=== PATIENT | female | born 1950 | race Caucasian/White ===

== ENCOUNTER 2017-03-09 03:22 | Emergency (ER) | payer MEDICARE, BC ==
[2017-03-09] MEDS ORDERED: Sodium Chloride 0.9% 1,000 ML IV ONE (03:44)
[2017-03-09] MEDS ORDERED: Morphine 2 MG/ML Syringe IVPUSH ONE (03:44)
[2017-03-09] MEDS ORDERED: Ondansetron 4 MG/2 ML SDV IVPUSH ONE (03:44)
[2017-03-09] MEDS ORDERED: Pantoprazole 40 MG in Sodium Chloride 0.9% 10 ML IVPUSH ONE (03:45)
[2017-03-09] MEDS ORDERED: Sodium Chloride 0.9% 2.5 ML Syringe FLUSH PRN (03:45)
[2017-03-09] MEDS ORDERED: Sodium Chloride 0.9% 10 ML Syringe FLUSH PRN (03:45)
--- NOTE | 2017-03-09 03:46 | EDM.PDOC ---
ED HPI GENERAL MEDICAL PROBLEM - General Chief Complaint: Abdominal Pain Stated Complaint: STOMACH PAIN Time Seen by Provider: 03/09/17 03:35 - History of Present Illness INITIAL COMMENTS - FREE TEXT/NARRATIVE: HISTORY AND PHYSICAL: History of present illness: The patient is a 66-year-old female with a history of hypertension hypercholesterolemia and prediabetes who presents with the complaint of epigastric discomfort and 2 episodes of vomiting that started about 9:00pm. The patient has not had an endoscopy recently but states that more than 20 years ago she had a bleeding ulcer but she has been stable from that perspective since that time. Her last colonoscopy was performed September of 2016 and revealed diverticulosis. The patient states that she does have issues with fatty foods in the past has been evaluated for her gallbladder but that was also negative workup. She still finds that she has issues with fatty foods so she tries to avoid them. The patient states that she ate tuna with mayonnaise for dinner and then approximately 9 PM started having epigastric discomfort with nausea and then 2 episodes of vomiting occurred later in the evening. She took a dose of sucralfate which seemed to help a little bit. She did have increased burping and fullness but did not have radiation of the pain to the remainder of the abdomen and has had no recent diarrhea or black or bloody stools. With the 2 episodes of vomiting at home it was white consistent with milk that she tried to drink to settle her stomach down. There was no coffee grounds or blood in the vomitus. She has had no recent fever chills shortness of breath cough or flank pain and has had no urinary complaints. She does tell me that the pain is sharp and gnawing in character and does radiate to her back but does not go right or left. Patient also tells me that she does have episodes of heartburn on a semi-regular basis and treats it symptomatically at home . The patient follows at [facility] with Dr. Saavedra Review of systems: As per history of present illness and below otherwise all systems reviewed and negative. Past medical history: As per history of present illness and as reviewed below otherwise noncontributory. Surgical history: As per history of present illness and as reviewed below otherwise noncontributory. Social history: No reported history of drug or alcohol abuse. Family history: As per history of present illness and as reviewed below otherwise noncontributory. Physical exam: General: Well-developed well-nourished nontoxic female who is mildly overweight and moves easily in the ED without distress. Vital signs been noted by me HEENT: Atraumatic, normocephalic, negative for conjunctival pallor or scleral icterus, mucous membranes moist, throat clear, neck supple, nontender, trachea midline. Lungs: Clear to auscultation, breath sounds equal bilaterally, chest nontender. Heart: S1S2, regular, negative for clicks, rubs, or JVD. Abdomen: Soft, nondistended, mildly tender in the epigastrium and in the midline just above the umbilicus without rebound or guarding and there was no localization of the tenderness right or left and there is no lower abdominal tenderness. Negative for masses or hepatosplenomegaly. Negative for costovertebral tenderness. Bowel sounds are hypoactive Pelvis: Stable nontender. Genitourinary: Deferred. Rectal: Deferred. Extremities: Atraumatic, negative for cords or calf pain. Neurovascular unremarkable. No pedal edema Neuro: Awake, alert, oriented. Cranial nerves II through XII unremarkable. Cerebellum unremarkable. Motor and sensory unremarkable throughout. Exam nonfocal. Diagnostics: EKG chest x-ray CBC CMP amylase lipase UA in the abdomen and pelvis Therapeutics: IV fluids Zofran morphine Protonix Patient is currently pain-free and I discussed with her and at bedside all testing results. In light of the fact that she has no WBC count and normal LFTs and no fever and is currently pain-free I discussed this case with Dr. Carney our surgeon on-call at 0625. She agrees with outpatient care and I will write a prescription for gallbladder ultrasound as an outpatient and pain meds. I advised her on reasons to return to the ER and the need to call today for clinic followup appointment Impression: Cholelithiasis with biliary colic stable Definitive disposition and diagnosis as appropriate pending reevaluation and review of above. epigastric area Pain Score (Numeric/FACES): 10 - Related Data Allergies Allergy/AdvReac Type Severity Reaction Status Date / Time iodine Allergy Blisters Verified 03/09/17 05:19 Penicillins Allergy Hives Verified 03/09/17 03:29 Home Meds: Home Meds Bisoprolol/Hydrochlorothiazide [Ziac 2.5-6.25 MG] 1 tab PO DAILY 06/06/16 [ History] Gemfibrozil 600 mg PO BID 06/06/16 [History] Ascorbic Acid [Vitamin C] 830 mg PO DAILY 09/24/16 [History] Aspirin [[place]udson Aspirin] 1 tab PO DAILY 09/24/16 [History] Calcium Carbonate [Calcium] 1 tab PO DAILY 09/24/16 [History] Glucosamine [Glucosamine Sulfate] 1 tab PO BID 09/24/16 [History] Past Medical History HEENT History: Reports: Other (See Below) Other HEENT History: on glasses Cardiovascular History: Reports: High Cholesterol, Hypertension Respiratory History: Reports: None Gastrointestinal History: Reports: Other (See Below) Other Gastrointestinal History: Ulcers Genitourinary History: Reports: None [employer]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: Musculoskeletal History: Reports: None Neurological History: Reports: None Psychiatric History: Reports: None Endocrine/Metabolic History: Reports: Obesity/BMI 30+, Other (See Below) Other Endocrine/Metabolic History: pre-DM Hematologic History: Reports: None Immunologic History: Reports: None Oncologic (Cancer) History: Reports: None Dermatologic History: Reports: None - Infectious Disease History Infectious Disease History: Reports: None - Past Surgical History Head Surgeries/Procedures: Reports: None HEENT Surgical History: Reports: Naso-Sinus Surgery, Tonsillectomy Female Surgical History: Reports: Section, Dilitation & Evacuation Musculoskeletal Surgical History: Reports: Other (See Below) Other Musculoskeletal Surgeries/Procedures:: left ankle surgery Social & Family History - Family History Family Medical History: Noncontributory - Tobacco Use Smoking Status *Q: Never Smoker Month Tobacco Last Used: quit smoking in 1983 - Caffeine Use Caffeine Use: Reports: Coffee - Recreational Drug Use Recreational Drug Use: No Drug Use in Last 12 Months: No ED ROS GENERAL - Review of Systems Review Of Systems: ROS reveals no pertinent complaints other than HPI. ED EXAM, GENERAL - Physical Exam Exam: See Below (See dictation) Course - Vital Signs Last Recorded V/S: Last Vital Signs Temp 36.1 C 03/09/17 03:31 Pulse 67 03/09/17 03:31 Resp 16 03/09/17 03:31 BP 171/84 H 03/09/17 03:31 Pulse Ox 96 03/09/17 04:23 - Orders/Labs/Meds Orders: Active Orders 24 hr Category Date Time Status Cardiac Monitoring [RC] . DIRECTED Care 03/09/17 03:44 Active EKG Documentation Completion [RC] STAT Care 03/09/17 03:44 Active Oxygen Therapy, ED [RC] ASDIRECTED Care 03/09/17 03:44 Active Pulse Oximetry [RC] ASDIRECTED Care 03/09/17 03:44 Active Abdomen Pelvis wo Cont [CT] Stat Exams 03/09/17 03:44 Taken Chest 1V Frontal [CR] Stat Exams 03/09/17 03:46 Taken Sodium Chloride 0.9% [Saline Flush] Med 03/09/17 03:45 Active 10 ml FLUSH ASDIRECTED PRN Sodium Chloride 0.9% [Saline Flush] Med 03/09/17 03:45 Active 2.5 ml FLUSH ASDIRECTED PRN Saline Lock Insert [OM.PC] Stat Oth 03/09/17 03:44 Ordered Medication Orders Sodium Chloride (Saline Flush) 10 ml FLUSH ASDIRECTED PRN PRN Reason: Keep Vein Open Sodium Chloride (Saline Flush) 2.5 ml FLUSH ASDIRECTED PRN PRN Reason: Keep Vein Open Labs: Laboratory Tests 03/09/17 03/09/17 03/09/17 Range/Units 04:05 04:05 04:46 WBC 8.33 (4.0-11.0) K/uL RBC 4.96 (4.30-5.90) M/uL Hgb 14.6 (12.0-16.0) g/dL Hct 44.1 (36.0-46.0) % MCV 88.9 (80.0-98.0) fL MCH 29.4 (27.0-32.0) pg MCHC 33.1 (31.0-37.0) g/dL RDW Std Deviation 43.1 (28.0-62.0) fl RDW Coeff of Anish 13 (11.0-15.0) % Plt Count 241 (150-400) K/uL MPV 11.00 (7.40-12.00) fL Neut % (Auto) 66.3 (48.0-80.0) % Lymph % (Auto) 24.4 (16.0-40.0) % Wilson % (Auto) 7.0 (0.0-15.0) % Eos % (Auto) 1.9 (0.0-7.0) % Baso % (Auto) 0.4 (0.0-1.5) % Neut # (Auto) 5.5 (1.4-5.7) K/uL Lymph # (Auto) 2.0 (0.6-2.4) K/uL Wilson # (Auto) 0.6 (0.0-0.8) K/uL Eos # (Auto) 0.2 (0.0-0.7) K/uL Baso # (Auto) 0.0 (0.0-0.1) K/uL Sodium 141 (136-146) mmol/L Potassium 4.1 (3.5-5.1) mmol/L Chloride 110 (98-110) mmol/L Carbon Dioxide 20 L (21-31) mmol/L BUN 20 (6.0-23.0) mg/dL Creatinine 0.9 (0.6-1.5) mg/dL Est Cr Clr Drug Dosing 56.78 mL/min Estimated GFR (MDRD) > 60.0 ml/min Glucose 151 H (60-110) mg/dL Calcium 9.3 (8.8-10.8) mg/dL Total Bilirubin 0.2 (0.1-1.5) mg/dL AST 18 (5-40) IU/L ALT 15 (8-54) IU/L Alkaline Phosphatase 71 (40-150) Total Protein 7.8 (6.0-8.0) g/dL Albumin 4.2 (3.4-4.8) g/dL Globulin 3.6 H (2.0-3.5) g/dL Albumin/Globulin Ratio 1.2 L (1.3-2.8) Amylase 52 (10-90) U/L Lipase 15 (7-80) U/L Urine Color YELLOW Urine Appearance CLEAR Urine pH 5.0 (5.0-8.0) Ur Specific [place] 1.025 (1.001-1.035) Urine Protein NEGATIVE (NEGATIVE) mg/dL Urine Glucose (UA) NEGATIVE (NEGATIVE) mg/dL Urine Ketones NEGATIVE (NEGATIVE) mg/dL Urine Occult Blood NEGATIVE (NEGATIVE) Urine Nitrite NEGATIVE (NEGATIVE) Urine Bilirubin NEGATIVE (NEGATIVE) Urine Urobilinogen 0.2 (<2.0) EU/dL Ur Leukocyte Esterase NEGATIVE (NEGATIVE) Urine RBC 0-2 (0-2/HPF) Urine WBC 0-4 (0-5/HPF) Ur Epithelial Cells FEW (NONE-FEW) Urine Bacteria FEW (NEGATIVE) Meds: Medications Generic Name Dose Route Start Last Admin Trade Name Sneha PRN Reason Stop Dose Admin Sodium Chloride 10 ml 03/09/17 03:45 Saline Flush FLUSH ASDIRECTED PRN Keep Vein Open Sodium Chloride 2.5 ml 03/09/17 03:45 Saline Flush FLUSH ASDIRECTED PRN Keep Vein Open Discontinued Medications Generic Name Dose Route Start Last Admin Trade Name Sneha PRN Reason Stop Dose Admin Hydromorphone HCl 1 mg 03/09/17 04:57 03/09/17 05:17 Dilaudid IVPUSH 03/09/17 04:58 1 mg ONETIME ONE Administration Pantoprazole Sodium 40 mg/ 10 mls @ 300 mls/hr 03/09/17 03:45 03/09/17 04:08 Sodium Chloride IVPUSH 03/09/17 03:46 300 mls/hr NOW ONE Administration Sodium Chloride 1,000 mls @ 999 mls/hr 03/09/17 03:44 03/09/17 04:07 Normal Saline IV 03/09/17 04:44 999 mls/hr STAT ONE Administration Morphine Sulfate 4 mg 03/09/17 03:44 03/09/17 04:09 Morphine IVPUSH 03/09/17 03:45 4 mg ONETIME ONE Administration Ondansetron HCl 4 mg 03/09/17 03:44 03/09/17 04:08 Zofran IVPUSH 03/09/17 03:45 4 mg ONETIME ONE Administration Departure - Departure Time of Disposition: 06:31 Disposition: Home, Self-Care 01 Condition: good Clinical Impression: Cholelithiasis - Discharge Information Forms: ED Department Discharge - My Orders Last 24 Hours: My Active Orders 03/09/17 03:44 Cardiac Monitoring [RC] . DIRECTED EKG Documentation Completion [RC] STAT Oxygen Therapy, ED [RC] ASDIRECTED Pulse Oximetry [RC] ASDIRECTED Abdomen Pelvis wo Cont [CT] Stat Saline Lock Insert [OM.PC] Stat 03/09/17 03:45 Sodium Chloride 0.9% [Saline Flush] 10 ml FLUSH ASDIRECTED PRN Sodium Chloride 0.9% [Saline Flush] 2.5 ml FLUSH ASDIRECTED PRN 03/09/17 03:46 Chest 1V Frontal [CR] Stat - Assessment/Plan Last 24 Hours: My Active Orders 03/09/17 03:44 Cardiac Monitoring [RC] . DIRECTED EKG Documentation Completion [RC] STAT Oxygen Therapy, ED [RC] ASDIRECTED Pulse Oximetry [RC] ASDIRECTED Abdomen Pelvis wo Cont [CT] Stat Saline Lock Insert [OM.PC] Stat 03/09/17 03:45 Sodium Chloride 0.9% [Saline Flush] 10 ml FLUSH ASDIRECTED PRN Sodium Chloride 0.9% [Saline Flush] 2.5 ml FLUSH ASDIRECTED PRN 03/09/17 03:46 Chest 1V Frontal [CR] Stat
[2017-03-09 04:34] LABS: CHLORIDE,CL 110 mmol/L (98-110); SODIUM,NA 141 mmol/L (136-146)
[2017-03-09] MEDS ORDERED: HYDROmorphone 2 MG/ML Syringe IVPUSH ONE (04:57)
[2017-03-09 07:03] VITALS: BP 118/57
--- NOTE | 2017-03-09 18:14 | CR ---
EXAM DATE: 03/09/17 PATIENT'S AGE: 66 Patient: JOELLE VALDERRAMA Facility: [place], [place] Site . Site : 1950 Study: XRay Chest [id number]/15/2017 3:59:32 AM Ordering Physician: Autumn Doyle Final Report: Indication: Upper abdominal pain Technique: Chest 1 view Comparison: None Findings/Impression: Cardiovascular and mediastinum: Heart size and vasculature are normal in caliber and appearance. Mediastinum is within normal limits. Lungs and pleural space: No consolidation or pleural effusions. A dense left upper lung nodule compatible with a granuloma. Bones and soft tissues: Thoracic osteophytosis consistent with DISH. Dictated by Angelito Christensen MD @ 03/09/2017 4:32:00 AM Dictated by: Angelito Christensen MD @ 03/09/2017 04:32:08 (Electronic Signature) Report Signed by Proxy. [email or web address]
--- NOTE | 2017-03-09 18:15 | CT ---
EXAM DATE: 03/09/17 PATIENT'S AGE: 66 Patient: JOELLE VALDERRAMA Facility: [place], [place] Site . Site : 1950 Study: CT Abdomen/Pelvis [id number]/15/2017 5:22:58 AM Ordering Physician: Autumn Doyle Final Report: INDICATION: epigastric pain, bilat back pain. HISTORY: Epigastric abdominal pain. COMPARISON: None. TECHNIQUE: CT of the abdomen and pelvis without intravenous contrast. Coronal/sagittal reconstruction images. FINDINGS: Lung bases: There is no pleural or pericardial effusion. The heart size is normal. The lung windows demonstrate no acute airspace disease. Minimal atelectasis at the right lung base. No basilar pneumothorax. Abdomen/pelvis: No solid hepatic mass. Gallstones. Questionable fat stranding adjacent to the gallbladder on image 57, series 201. Normal caliber biliary tree. Spleen size is normal. There is an exophytic left renal cyst. This measures 3.5 cm in transverse dimension. 5 mm stone in the left renal cortex on image 49. No drainable perinephric fluid collection. There is no obstructive urolith. Subtle increased density of both renal pelves, best seen on series 201, image 68, with questionable significance. No adnexal mass. Colonic diverticulosis. No findings for diverticulitis. No small bowel obstruction. No secondary signs for appendicitis. No abdominal aortic aneurysm. No abdominal or pelvic lymphadenopathy by size criteria. No inflammatory changes about the appendix. The bone windows demonstrate degenerative changes at the femoroacetabular joints. Osteophytic spurring is seen throughout the endplates of the thoracolumbar spine. No lytic or blastic bone lesions are seen. IMPRESSION: 1. Gallstones. Questionable adjacent inflammatory changes. Consider focused right upper quadrant ultrasound. 2. Normal caliber biliary tree. 3. No inflammatory changes about the pancreas. The anterior pararenal space is clear by CT. 4. Cortical loss about the left kidney. This could represent sequela from prior pyelonephritis, ischemia, or trauma. No obstructive urolith or hydroureteronephrosis. Dictated by Rodrigo Smith MD @ 03/09/2017 6:12:55 AM Dictated by: Rodrigo Smith MD @ 03/09/2017 06:13:05 (Electronic Signature) Report Signed by Proxy. JELENAD
== END 2017-03-09 07:10 | disposition home or self-care (01) ==
LOC: MW.ED 03:22
DX: K80.70 Calculus of gallbladder and bile duct without cholecystitis without obstruction (principal); E78.00 Pure hypercholesterolemia, unspecified; I10 Essential (primary) hypertension; E66.9 Obesity, unspecified; Z68.34 Body mass index [BMI] 34.0-34.9, adult; Z88.0 Allergy status to penicillin; Z88.8 Allergy status to other drugs, medicaments and biological substances; Z79.82 Long term (current) use of aspirin; Z79.899 Other long term (current) drug therapy; Z98.890 Other specified postprocedural states
CPT/HCPCS: 71010; 74176; 80053; 81001; 82150; 83690; 85025; 93005; 96361; 96374; 96375; 99285; C9113; J1170; J2270; J2405; J7040

== ENCOUNTER 2017-04-27 07:07 | Day surgery (SDC) | payer MEDICARE, BC ==
[~2017-04-27 07:07] MED LIST: Lactated Ringers 1,000 ML IV SCH; Sodium Chloride 0.9% 10 ML Syringe FLUSH PRN; Sodium Chloride 0.9% 2.5 ML Syringe FLUSH PRN; ceFAZolin 2 GM in Premix Bag 1 BAG IV ONE
[2017-04-27] MEDS ORDERED: Lidocaine 2% 5 ML SDV ONE (07:09)
[2017-04-27] MEDS ORDERED: Rocuronium 10 MG/ML 10 ML Syringe ONE (07:09)
[2017-04-27] MEDS ORDERED: Ondansetron 4 MG/2 ML SDV ONE (07:09)
[2017-04-27] MEDS ORDERED: Midazolam 1 MG/ML 2 ML SDV ONE (07:10)
[2017-04-27] MEDS ORDERED: fentaNYL 250 MCG/5 ML SDV ONE (07:10)
[2017-04-27] MEDS ORDERED: Propofol 200 MG/20 ML SDV ONE (07:10)
[2017-04-27] MEDS ORDERED: Bupivacaine 0.5% 30 ML SDV ONE (07:22)
[2017-04-27] MEDS ORDERED: Scopolamine 1.5 MG Transdermal Patch TRDERM PRN (07:43)
--- NOTE | 2017-04-27 07:47 | PCM.PREANE ---
Preanesthetic Assessment - Anesthesia/Transfusion/Family Hx Anesthesia History: Prior Anesthesia Without Reaction Type of Anesthesia Reaction: Anesthesia Awareness (during D&C) Family History of Anesthesia Reaction: No Transfusion History: No Prior Transfusion(s) Intubation History: Unknown - Review of Systems General: No Symptoms Pulmonary: No Symptoms Cardiovascular: No Symptoms Gastrointestinal: Abdominal pain Neurological: No Symptoms Other: Reports: None - Physical Assessment O2 Sat by Pulse Oximetry: 96 Respiratory Rate: 16 Vital Signs: Last Vital Signs Temp 36.2 C 04/27/17 07:43 Pulse 66 04/27/17 07:43 Resp 16 04/27/17 07:43 BP 138/75 04/27/17 07:43 Pulse Ox 96 04/27/17 07:43 Height: 1.68 m Weight: 93.44 kg ASA Class: 2 Mental Status: Alert & Oriented x3 Airway Class: Mallampati = 2 Dentition: Reports: Normal Dentition Thyro-Mental Finger Breadths: 2 Mouth Opening Finger Breadths: 2 ROM/Head Extension: Full Lungs: Clear to auscultation, Normal respiratory effort Cardiovascular: Regular Rate, Regular Rhythm - Allergies Allergies/Adverse Reactions: Allergies Allergy/AdvReac Type Severity Reaction Status Date / Time Iodine and Iodide Containing Allergy Blisters Verified 04/22/17 11:17 Produc Penicillins Allergy Hives Verified 04/22/17 11:17 - Blood Blood Available: No - Anesthesia Plan Pre-Op Medication Ordered: None - Acknowledgements Anesthesia Type Planned: General Anesthesia Pt an Appropriate Candidate for the Planned Anesthesia: Yes Alternatives and Risks of Anesthesia Discussed w Pt/Guardian: Yes Pt/Guardian Understands and Agrees with Anesthesia Plan: Yes PreAnesthesia Questionnaire Other HEENT History: wears glasses Cardiovascular History: Reports: High Cholesterol (high triglicerides), Hypertension Respiratory History: Reports: None Gastrointestinal History: Reports: GERD Genitourinary History: Reports: None 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: Musculoskeletal History: Reports: Arthritis, Back Pain, Chronic, Fracture Neurological History: Reports: None Psychiatric History: Reports: None Endocrine/Metabolic History: Reports: Obesity/BMI 30+ Hematologic History: Reports: None Immunologic History: Reports: None Oncologic (Cancer) History: Reports: None Dermatologic History: Reports: None - Past Surgical History Head Surgeries/Procedures: Reports: None HEENT Surgical History: Reports: Adenoidectomy, Cataract Surgery, Naso-Sinus Surgery, Tonsillectomy Cardiovascular Surgical History: Reports: None GI Surgical History: Reports: None Female Surgical History: Reports: Section (x3), D&C Musculoskeletal Surgical History: Reports: ORIF Other Musculoskeletal Surgeries/Procedures:: ORIF left ankle, hardware later removed - SUBSTANCE USE Smoking Status *Q: Former Smoker Tobacco Use Within Last Twelve Months: No Recreational Drug Use History: No - HOME MEDS Home Medications: Home Meds Bisoprolol Fumarate/HCTZ [Ziac 2.5-6.25 MG] 0.5 tab PO DAILY 04/22/17 [History] Gemfibrozil 600 mg PO DAILY 04/22/17 [History] - CURRENT (IN HOUSE) MEDS Current Meds: Current Medications Lactated Ringer's (Ringers, Lactated) 1,000 mls @ 125 mls/hr IV ASDIRECTED CHRIS Last Admin: 04/27/17 07:42 Dose: 125 mls/hr Scopolamine (Transderm-Scop) 1.5 mg TRDERM Q72H PRN PRN Reason: Nausea Sodium Chloride (Saline Flush) 10 ml FLUSH ASDIRECTED PRN PRN Reason: Keep Vein Open Sodium Chloride (Saline Flush) 2.5 ml FLUSH ASDIRECTED PRN PRN Reason: Keep Vein Open Discontinued Medications Bupivacaine HCl (Marcaine 0.5%) Confirm Administered Dose 30 ml .ROUTE .STK-MED ONE Stop: 04/27/17 07:23 Fentanyl (Sublimaze) Confirm Administered Dose 250 mcg .ROUTE .STK-MED ONE Stop: 04/27/17 07:11 Cefazolin Sodium/Dextrose 2 gm (/ Premix) 50 mls @ 100 mls/hr IV ONETIME ONE Stop: 04/27/17 06:58 Lidocaine (Xylocaine-Mpf 2%) Confirm Administered Dose 5 ml .ROUTE .STK-MED ONE Stop: 04/27/17 07:10 Midazolam HCl (Versed 1 Mg/Ml) Confirm Administered Dose 2 mg .ROUTE .STK-MED ONE Stop: 04/27/17 07:11 Ondansetron HCl (Zofran) Confirm Administered Dose 4 mg .ROUTE .STK-MED ONE Stop: 04/27/17 07:10 Propofol (Diprivan 20 Ml) Confirm Administered Dose 200 mg .ROUTE .STK-MED ONE Stop: 04/27/17 07:11 Rocuronium [place] (Zemuron) Confirm Administered Dose 100 mg .ROUTE .STK-MED ONE Stop: 04/27/17 07:10
[2017-04-27] MEDS ORDERED: fentaNYL 100 MCG/2 ML SDV ONE (08:16)
[2017-04-27] MEDS ORDERED: diphenhydrAMINE 50 MG/ML SDV ONE (08:55)
[2017-04-27] MEDS ORDERED: Dexamethasone 4 MG/ML 5 ML MDV ONE (08:55)
[2017-04-27] MEDS ORDERED: fentaNYL 100 MCG/2 ML SDV IVPUSH PRN (09:11)
[2017-04-27] MEDS ORDERED: HYDROmorphone 2 MG/ML Syringe ONE (09:28)
[2017-04-27] MEDS ORDERED: Neostigmine Methylsulfate 1 MG/ML 5 ML Syringe ONE (10:07)
--- NOTE | 2017-04-27 10:29 | PCM.OPNOTE ---
- General Post-Op/Procedure Note Date of Surgery/Procedure: 04/27/17 Operative Procedure(s): laparoscopic cholecystectomy Findings: Chronically inflamed gallbladder containing gallstones. Gallbladder had flimsy adhesions to the duodenum and omentum. Pre Op Diagnosis: symptomatic cholelithiasis Post-Op Diagnosis: same Anesthesia Technique: General ET tube Primary Surgeon: Carmen Carney Output, Urine Amount: 150 EBL in mLs: 10 Condition: Good
--- NOTE | 2017-04-27 11:37 | PCM.POSTAN ---
POST ANESTHESIA ASSESSMENT - MENTAL STATUS Mental Status: alert, oriented - RESPIRATORY Respiratory Status: respiratory rate WNL - CARDIOVASCULAR CV Status: pulse rate WNL, blood pressure stable - GASTROINTESTINAL GI Status: no symptoms - PAIN Pain Score: 0 - POST OP HYDRATION Hydration Status: adequate & stable - OBSERVATIONS Free Text/Narrative:: no anesthesia problems
--- NOTE | 2017-04-27 12:04 | OR ---
SURGEON: NITA RIOS MD DATE OF PROCEDURE: 04/27/2017 PREOPERATIVE DIAGNOSIS: Symptomatic cholelithiasis. POSTOPERATIVE DIAGNOSIS: Symptomatic cholelithiasis. PROCEDURE PERFORMED: Laparoscopic cholecystectomy. ANESTHESIA: General endotracheal anesthesia. FLUIDS: See anesthesia record. URINE OUTPUT: 150 mL. ESTIMATED BLOOD LOSS: 10 mL. PATHOLOGY: Gallbladder. FINDINGS: Chronically inflamed gallbladder with filmy adhesions to the duodenum and omentum. Gallbladder contained stones. COMPLICATIONS: None. INDICATIONS: The patient is a 66-year-old female, who presents with several years worth of a right upper quadrant pain after meals. The patient recently had a severe episode of pain, which brought her to the emergency room. Her LFTs were normal and right upper quadrant ultrasound showed cholelithiasis with no signs of cholecystitis. The patient's pain was then managed with narcotic pain medications and she presented to me in clinic. The decision was made to perform a cholecystectomy. We discussed the laparoscopic and open approaches. I explained that should I be unable to perform it safely laparoscopically, I would be converting to open. The patient and I also discussed the risks including bleeding, infection, or damage to surrounding structures. The patient verbalized understanding and wishes to proceed. PROCEDURE IN DETAIL: The patient was brought into the OR and placed on the OR table in supine position. A time-out was completed verifying the patient's name, age, date of , allergies, and procedure to be performed. General endotracheal anesthesia was induced. The left arm was tucked to the patient's side and a Sadler catheter placed. The abdomen was prepped and draped in the usual standard fashion. I anesthetized the upper midline portion of the patient's abdomen proximal to the umbilicus. I made a vertical midline incision superior to the umbilicus using an 11 blade. Cautery was used to dissect down to the subcutaneous tissues. I then used S retractors to dissect down to the fascia. The fascia was grasped with 2 Flor's and incised using Carl scissors. Two 0 Vicryl sutures were placed in the fascia to allow for abdominal closure at the end of the case. The peritoneum was elevated using two hemostats and incised with the Metzenbaum scissors. A 12 mm blunt tip trocar was then inserted into the abdomen and the abdomen insufflated. After an insufflation was achieved, I inserted a 5 mm 30-degree scope into the belly. The area underneath my incision site appeared normal with no evidence of damage to surrounding tissues. Three more trocars were placed under direct visualization in the following locations; one in the right epigastric area, one in the right subcostal region along the midclavicular line, and one in the right flank. The patient was then placed in reverse Trendelenburg position and airplaned slightly to the left. The dome of the gallbladder was grasped and lifted above the liver. The gallbladder itself had multiple filmy adhesions to the surrounding omentum and the infundibulum was adhered to the duodenum. Using gentle blunt dissection, I was able to take down these adhesions to completely free up the gallbladder. The infundibulum was grasped with an atraumatic grasper through the right midclavicular port. It was then retracted inferiorly and laterally. This allowed exposure of the peritoneum overlying the cystic duct and artery. Using hook cautery, a Calista dissector, and suction, I gently dissected away the surrounding fat and peritoneum from the base of the gallbladder. This allowed me to adequately identify the cystic duct and artery. The cystic duct was quite large and contained several stones, which were milked back up into the gallbladder. Given how large it was and my need to know my anatomy correctly, I also dissected the gallbladder fci up the cystic plate. Once I ensured my anatomy, I doubly clipped and ligated the cystic duct and artery. The remainder of the gallbladder was removed from the gallbladder fossa using hook cautery. The gallbladder was then placed into an EndoCatch bag and removed from the 12 mm supraumbilical port site. The port was then replaced and I carefully inspected my surgical area. During mobilization of the gallbladder, a rent was made into the lumen of the gallbladder and several stones and bile were spilled into the belly. I was able to remove the majority of these stones with my laparoscopic grasper. I then copiously irrigated the abdomen with 2.5 L of normal saline until it ran clear. I then reinspected my area and found my clips to be in place with no evidence of bleeding along the gallbladder fossa or at the cystic artery. The trocars were then removed under direct visualization and the abdomen allowed to desufflate. I then closed my fascial incision with my previously placed 0 Vicryl sutures. I then closed the overlying tissue with an interrupted 3-0 Vicryl in the subcutaneous fat and a running 4-0 Monocryl suture in the subcuticular space at the supraumbilical trocar site. The 5 mm trocar sites were closed with interrupted 4-0 Monocryl. Steri-Strips and sterile dressings were applied. All counts were correct and complete at the end of the case. The patient tolerated the procedure well and was taken to the PACU in stable condition. ISSAC WEI /[id number]
[2017-04-27 13:32] VITALS: BP 133/79
== END 2017-04-27 13:00 | disposition home or self-care (01) ==
LOC: MERGE 07:07 → MW.SDS 07:07
PROVIDERS: ATTEND Surgery
DX: K81.1 Chronic cholecystitis (principal); I10 Essential (primary) hypertension; Z88.0 Allergy status to penicillin; Z88.8 Allergy status to other drugs, medicaments and biological substances; Z79.82 Long term (current) use of aspirin; Z79.899 Other long term (current) drug therapy; Z98.890 Other specified postprocedural states; Z87.891 Personal history of nicotine dependence
CPT/HCPCS: 47562; A9270; J1100; J1170; J1200; J2250; J2405; J3010; J7120; 00790; 88304; J2704

== ENCOUNTER 2017-08-13 08:51 | Day surgery (SDC) | payer MEDICARE, BC ==
[~2017-08-13 08:51] MED LIST changes: +Midazolam 1 MG/ML 2 ML SDV ONE; +Ondansetron 4 MG/2 ML SDV ONE; +Propofol 200 MG/20 ML SDV ONE; -ceFAZolin 2 GM in Premix Bag 1 BAG IV ONE; +fentaNYL 100 MCG/2 ML SDV ONE
--- NOTE | 2017-08-13 09:27 | PCM.PREANE ---
Preanesthetic Assessment - Anesthesia/Transfusion/Family Hx Anesthesia History: Prior Anesthesia Without Reaction Family History of Anesthesia Reaction: No Transfusion History: No Prior Transfusion(s) Intubation History: Unknown - Review of Systems General: No Symptoms Pulmonary: No Symptoms Cardiovascular: No Symptoms Gastrointestinal: Difficulty Swallowing Neurological: No Symptoms Other: Reports: None - Physical Assessment O2 Sat by Pulse Oximetry: 95 Respiratory Rate: 16 Vital Signs: Last Vital Signs Temp 36.2 C 08/13/17 09:00 Pulse 68 08/13/17 09:00 Resp 16 08/13/17 09:00 BP 139/75 08/13/17 09:00 Pulse Ox 95 08/13/17 09:00 Height: 1.68 m Weight: 93.44 kg ASA Class: 2 Mental Status: Alert & Oriented x3 Airway Class: Mallampati = 2 Dentition: Reports: Normal Dentition Thyro-Mental Finger Breadths: 2 Mouth Opening Finger Breadths: 2 ROM/Head Extension: Full Lungs: Clear to Auscultation, Normal Respiratory Effort Cardiovascular: Regular Rate, Regular Rhythm - Allergies Allergies/Adverse Reactions: Allergies Allergy/AdvReac Type Severity Reaction Status Date / Time iodine Allergy Blisters Verified 03/09/17 05:19 Iodine and Iodide Containing Allergy Blisters Verified 04/22/17 11:17 Produc Penicillins Allergy Hives Verified 03/09/17 03:29 - Blood Blood Available: No - Anesthesia Plan Pre-Op Medication Ordered: None - Acknowledgements Anesthesia Type Planned: MAC Pt an Appropriate Candidate for the Planned Anesthesia: Yes Alternatives and Risks of Anesthesia Discussed w Pt/Guardian: Yes Pt/Guardian Understands and Agrees with Anesthesia Plan: Yes PreAnesthesia Questionnaire HEENT History: Reports: Other (See Below) Other HEENT History: wears glasses Cardiovascular History: Reports: High Cholesterol, Hypertension Respiratory History: Reports: None Gastrointestinal History: Reports: GERD, Other (See Below) (mild presbyesophagus on barium swallow study in '15) Other Gastrointestinal History: Ulcers Genitourinary History: Reports: None 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: Musculoskeletal History: Reports: Arthritis, Fracture Neurological History: Reports: None Psychiatric History: Reports: None Endocrine/Metabolic History: Reports: Obesity/BMI 30+ Hematologic History: Reports: None Immunologic History: Reports: None Oncologic (Cancer) History: Reports: None Dermatologic History: Reports: None - Infectious Disease History Infectious Disease History: Reports: None - Past Surgical History Head Surgeries/Procedures: Reports: None HEENT Surgical History: Reports: Adenoidectomy, Cataract Surgery, Naso-Sinus Surgery, Tonsillectomy Cardiovascular Surgical History: Reports: None GI Surgical History: Reports: Cholecystectomy, Colonoscopy Female Surgical History: Reports: Section (x3), D&C Musculoskeletal Surgical History: Reports: Other (See Below), ORIF Other Musculoskeletal Surgeries/Procedures:: ORIF left ankle, hardware later removed - SUBSTANCE USE Smoking Status *Q: Former Smoker Tobacco Use Within Last Twelve Months: No Recreational Drug Use History: No - HOME MEDS Home Medications: Home Meds Bisoprolol/Hydrochlorothiazide [Ziac 2.5-6.25 MG] 0.5 tab PO DAILY 06/06/16 [ History] Gemfibrozil 600 mg PO DAILY 06/06/16 [History] Ascorbic Acid [Vitamin C] 500 mg CHEW DAILY 09/24/16 [History] Aspirin [Harper Aspirin] 1 tab PO DAILY 09/24/16 [History] Calcium Carbonate [Calcium] 1 tab PO DAILY 09/24/16 [History] Glucosamine [Glucosamine Sulfate] 1 tab PO BID 09/24/16 [History] - CURRENT (IN HOUSE) MEDS Current Meds: Current Medications Lactated Ringer's (Ringers, Lactated) 1,000 mls @ 125 mls/hr IV ASDIRECTED CHRIS Last Admin: 08/13/17 09:04 Dose: 125 mls/hr Sodium Chloride (Saline Flush) 10 ml FLUSH ASDIRECTED PRN PRN Reason: Keep Vein Open Sodium Chloride (Saline Flush) 2.5 ml FLUSH ASDIRECTED PRN PRN Reason: Keep Vein Open Discontinued Medications Fentanyl (Sublimaze) Confirm Administered Dose 100 mcg .ROUTE .STK-MED ONE Stop: 08/13/17 08:30 Lidocaine HCl (Xylocaine-Mpf 1%) Confirm Administered Dose 5 ml .ROUTE .STK-MED ONE Stop: 08/13/17 08:28 Midazolam HCl (Versed 1 Mg/Ml) Confirm Administered Dose 2 mg .ROUTE .STK-MED ONE Stop: 08/13/17 08:29 Ondansetron HCl (Zofran) Confirm Administered Dose 4 mg .ROUTE .STK-MED ONE Stop: 08/13/17 08:28 Propofol (Diprivan 20 Ml) Confirm Administered Dose 200 mg .ROUTE .STK-MED ONE Stop: 08/13/17 08:30 Propofol (Diprivan 20 Ml) Confirm Administered Dose 200 mg .ROUTE .STK-MED ONE Stop: 08/13/17 08:47
--- NOTE | 2017-08-13 11:40 | PCM.OPNOTE ---
- General Post-Op/Procedure Note Date of Surgery/Procedure: 08/13/17 Operative Procedure(s): EGD Findings: Moderate gastritis and mild duodenitis Pre Op Diagnosis: Dysphagia Post-Op Diagnosis: Mild presbyesophagus, moderate gastritis, mild duodenitis Anesthesia Technique: ELEAZAR Primary Surgeon: Carmen Carney Condition: Good
[2017-08-13 11:58] VITALS: BP 126/70
--- NOTE | 2017-08-14 14:28 | OR ---
SURGEON: NITA RIOS MD DATE OF PROCEDURE: 08/13/2017 PREOPERATIVE DIAGNOSIS: Dysphagia. POSTOPERATIVE DIAGNOSIS: Gastritis and duodenitis. PROCEDURE PERFORMED: Diagnostic esophagogastroduodenoscopy. INSTRUMENT USED: Olympus endoscope. EXTENT OF EXAM: To the 2nd portion of duodenum. PREPARATION: Good. LIMITATIONS: None. INDICATIONS FOR EXAMINATION: The patient is a 67-year-old female, who is complaining of increasing dysphagia to both solids and liquids. She was started on a PPI, but does not feel this has helped any of her symptoms. A previous esophagram had shown mild presbyopia of the esophagus. A decision was made to perform a diagnostic EGD to rule out any etiology of her dysphagia. We discussed the procedure as well as expected perioperative course. We discussed the risks, including bleeding, or perforation. The patient verbalized understanding and wishes to proceed. PROCEDURE IN DETAIL: The patient was brought into the endoscopy suite and placed in a beach chair position. A time-out was completed verifying the patient's name, age, date of , allergies, and procedure to be performed. A bite block was placed into the patient's mouth and monitored anesthesia care was induced. Continuous oxygen was provided via nasal cannula throughout the procedure. After adequate sedation had been achieved, a well lubricated endoscope was placed down the patient's mouth and advanced under direct visualization to the level of the 2nd portion of the duodenum. This appeared normal and a photograph was taken. The scope was then pulled back while examining the color, texture, anatomy, and integrity of the mucosa in the duodenum, stomach, and esophagus. The 1st portion of the duodenum appeared slightly erythematous with evidence of mild duodenitis. The scope was then brought into the stomach and a photograph was taken of the pylorus as well as the GE junction. These both appeared normal. The body of the stomach appeared moderately inflamed consistent with gastritis. Biopsies were taken of the gastric, antrum, body, and fundus and sent for H. pylori testing. The scope was then brought into the distal esophagus. A photograph was taken of the GE junction, which appeared normal. The esophagus appeared mildly dilated, but had no evidence of inflammation or ulceration. The scope was then removed from the patient and the procedure terminated. The patient tolerated the procedure well and was taken to the PACU in stable condition. ENDOSCOPIC DIAGNOSIS: Gastritis and duodenitis, mild presbyesophagus. RECOMMENDATIONS: Continue on PPI and follow up in clinic in 2 weeks for discussion of further dysphagia workup. ISSAC WEI /[id number]
== END 2017-08-13 11:57 | disposition home or self-care (01) ==
LOC: MW.SDS 08:51
PROVIDERS: ATTEND Surgery
DX: K29.80 Duodenitis without bleeding (principal); K29.70 Gastritis, unspecified, without bleeding; I10 Essential (primary) hypertension; Z88.0 Allergy status to penicillin; Z88.8 Allergy status to other drugs, medicaments and biological substances; Z91.048 Other nonmedicinal substance allergy status; Z90.49 Acquired absence of other specified parts of digestive tract; Z79.82 Long term (current) use of aspirin; Z79.899 Other long term (current) drug therapy; Z98.890 Other specified postprocedural states; Z87.891 Personal history of nicotine dependence
CPT/HCPCS: 43239; J2250; J2405; J3010; J7120; 00740; 88305; 88312; J2704

== ENCOUNTER 2022-01-28 08:20 | Day surgery (SDC) | payer MEDICARE, BC ==
[~2022-01-28 08:20] MED LIST changes: +Albuterol 0.083% 2.5 MG/3 ML Neb Soln NEB PRN; +HYDROmorphone 1 MG/ML Syringe IVPUSH PRN; +Metoclopramide 10 MG/2 ML SDV IVPUSH PRN; -Midazolam 1 MG/ML 2 ML SDV ONE; +Morphine 4 MG/ML VIAL IVPUSH PRN; +Naloxone 0.4 MG/ML SDV IVPUSH PRN; +Ondansetron 4 MG/2 ML SDV IVPUSH PRN; -Ondansetron 4 MG/2 ML SDV ONE; -Propofol 200 MG/20 ML SDV ONE; -Sodium Chloride 0.9% 10 ML Syringe FLUSH PRN; -Sodium Chloride 0.9% 2.5 ML Syringe FLUSH PRN; +fentaNYL 100 MCG/2 ML SDV IVPUSH PRN; -fentaNYL 100 MCG/2 ML SDV ONE
[2022-01-28] MEDS ORDERED: Lidocaine 1% 5 ML VIAL ONE (09:07)
[2022-01-28] MEDS ORDERED: Propofol 200 MG/20 ML SDV ONE (09:07)
[2022-01-28] MEDS ORDERED: fentaNYL 100 MCG/2 ML SDV ONE (09:07)
[2022-01-28] MEDS ORDERED: Ondansetron 4 MG/2 ML SDV ONE (09:07)
[2022-01-28] MEDS ORDERED: Dexamethasone 4 MG/ML 5 ML MDV ONE (09:07)
[2022-01-28] MEDS ORDERED: Ketorolac 30 MG/ML SDV ONE (09:07)
[2022-01-28 13:51] VITALS: BP 107/61; PULSE 78
== END 2022-01-28 11:43 | disposition home or self-care (01) ==
LOC: MW.SDS 08:20
PROVIDERS: ATTEND Obstetrics & Gynecology
DX: N85.6 Intrauterine synechiae (principal); N73.6 Female pelvic peritoneal adhesions (postinfective); E66.9 Obesity, unspecified; I10 Essential (primary) hypertension; E78.00 Pure hypercholesterolemia, unspecified; Z87.891 Personal history of nicotine dependence; Z88.8 Allergy status to other drugs, medicaments and biological substances; Z88.0 Allergy status to penicillin; Z98.890 Other specified postprocedural states; Z79.899 Other long term (current) drug therapy
CPT/HCPCS: 36415; 58558; 58559; 82947; 85027; J0131; J1100; J1885; J2405; J2704; J3010; J7120; 00952; 99100